=== PATIENT | male | born 1990 | race Two or more races ===

== ENCOUNTER 2024-05-11 14:48 | Emergency (ER) | payer OTHER ==
[~2024-05-11] VITALS: Ht 185.4 cm; Wt 179.2 kg
[2024-05-11] MEDS ORDERED: TETANUS & DIPHTHERIA TOX,ADULT 0.5 ML VIAL IM ONE (17:00)
[2024-05-11] MEDS ORDERED: LIDOCAINE HCL 1% 10ML VIAL PERCUT ONE (17:00)
== END 2024-05-11 18:44 | disposition home or self-care (01) ==
LOC: ER 14:50
DX: S61.412A Laceration without foreign body of left hand, initial encounter (principal); W26.0XXA Contact with knife, initial encounter; Y93.89 Activity, other specified; Y92.018 Other place in single-family (private) house as the place of occurrence of the external cause; Y99.9 Unspecified external cause status